=== PATIENT | female | born 2000 | race African-American/Black ===

== ENCOUNTER 2023-12-08 23:09 | Emergency (ER) | payer BC ==
[~2023-12-08] VITALS: Ht 165.1 cm; Wt 128.3 kg
[2023-12-09] MEDS: KETOROLAC 30 MG/ML 1ML VIAL IV ONE (00:16)
[2023-12-09 00:19] LABS: HEMATOCRIT 32.5 % (36.0-47.0); HEMOGLOBIN 9.2 g/dl (12.0-15.5); MEAN CORPUSCULAR HGB CONC 28.3 g/dl (32.0-36.5); MEAN CORPUSCULAR VOLUME 67.1 fl (80.0-96.0); PLATELET COUNT, AUTOMATED 498 10^3/uL (150-450); RED BLOOD COUNT 4.84 10^6/uL (4.00-5.40); WHITE BLOOD COUNT 7.9 10^3/uL (4.0-10.0)
[2023-12-09 00:20] LABS: BASO % 0.3 % (0.0-1.0); EOS # 0.2 10^3/uL (0.0-0.5); EOS % 3.1 % (0.0-3.0); LYMPH % 37.9 % (24.0-44.0); MONO # 0.5 10^3/uL (0.0-0.8); MONO % 6.5 % (2.0-8.0); NEUTROPHILS # 4.1 10^3/uL (1.5-8.5); NEUTROPHILS % 51.9 % (36.0-66.0)
[2023-12-09 00:23] LABS: INR 1.2; PARTIAL THROMBOPLASTIN TIME 32.1 SECONDS (24.8-34.2); PROTHROMBIN TIME 14.8 SECONDS (12.5-14.5)
[2023-12-09 00:41] LABS: LIPASE 28 U/L (12-53)
[2023-12-09 00:42] LABS: RSV AMPLIFICATION NEGATIVE (NEGATIVE)
[2023-12-09 00:44] LABS: ALBUMIN 3.6 G/DL (3.2-5.2); ALKALINE PHOSPHATASE 88 U/L (46-116); ALT/SGPT 19 U/L (7.0-40); AST/SGOT 19 U/L (<34); BILIRUBIN,DIRECT < 0.1 MG/DL (<0.4); BILIRUBIN,TOTAL 0.2 MG/DL (0.3-1.2); BLOOD UREA NITROGEN 8 MG/DL (9-23); CALCIUM LEVEL 9.3 MG/DL (8.5-10.1); CARBON DIOXIDE LEVEL 27 MMOL/L (20-31); CHLORIDE LEVEL 104 MMOL/L (98-107); CK-MB VALUE MASS < 1.0 NG/ML (<3.6); CREATININE FOR GFR 0.65 MG/DL (0.55-1.30); GLOMERULAR FILTRATION RATE > 60.0 (>60); GLUCOSE, FASTING 95 MG/DL (60-100); POTASSIUM SERUM 4.3 MMOL/L (3.5-5.1); SODIUM LEVEL 138 MMOL/L (136-145); TOTAL PROTEIN 7.9 G/DL (5.7-8.2)
[2023-12-09 00:47] LABS: THYROID STIMULATING HORMONE 4.835 uIU/ML (0.55-4.78)
[2023-12-09 00:50] LABS: CPK CREATINE PHOSPHOKINASE 113 U/L (34-145); MB/CK RELATIVE INDEX 0.88 (< OR =4)
[2023-12-09 01:09] VITALS: BP 134/72; TEMP 98.1; O2SAT 100
== END 2023-12-09 01:10 | disposition home or self-care (01) ==
LOC: M ED 23:09
DX: J02.9 Acute pharyngitis, unspecified (principal); R07.89 Other chest pain; J35.8 Other chronic diseases of tonsils and adenoids; R94.6 Abnormal results of thyroid function studies; D50.9 Iron deficiency anemia, unspecified; Z88.0 Allergy status to penicillin
CPT/HCPCS: 71046; 80048; 80076; 82550; 82553; 83690; 83880; 84439; 84443; 84484; 84702; 85025; 85610; 85730; 87631; 93005; 96374; 99284; J1885

== ENCOUNTER 2024-03-04 10:38 | Emergency (ER) | payer BC ==
[~2024-03-04] VITALS: Ht 165.1 cm; Wt 129.5 kg
[2024-03-04 10:38] VITALS: BP 156/73; TEMP 98.6; O2SAT 100
[2024-03-04] MEDS ORDERED: FERR325T3 PO (10:52)
[2024-03-04] MEDS: diazePAM 5MG TABLET PO ONE (14:40)
[2024-03-04] MEDS: IBUPROFEN 600MG TAB PO ONE (14:40)
[2024-03-04] MEDS ORDERED: IBUP-1022 PO (15:38)
[2024-03-04] MEDS ORDERED: SOMA350T PO (15:38)
== END 2024-03-04 15:50 | disposition home or self-care (01) ==
LOC: M ED 10:38
DX: R07.89 Other chest pain (principal); E28.2 Polycystic ovarian syndrome; D64.9 Anemia, unspecified; Z88.0 Allergy status to penicillin; Z79.1 Long term (current) use of non-steroidal anti-inflammatories (NSAID); Z79.899 Other long term (current) drug therapy

== ENCOUNTER → 2024-03-20 | Outpatient (REF) ==
[~2024-03-20] MED LIST: FERR325T3 PO; IBUP-1022 PO; SOMA350T PO
== END ==
LOC: M EMP 15:07
PROVIDERS: ATTEND Family Medicine
DX: Z11.52 Encounter for screening for COVID-19 (principal)

== ENCOUNTER → 2024-04-23 | Outpatient (REF) | payer BC | LOC: M SFHCPLAZ 18:00 | PROVIDERS: ATTEND Student in an Organized Health Care Education/Training Program | DX: Z87.42 Personal history of other diseases of the female genital tract (principal); Z76.89 Persons encountering health services in other specified circumstances; F41.9 Anxiety disorder, unspecified ==

== ENCOUNTER → 2024-05-29 | Outpatient (CLI) | payer BC ==
[2024-05-29 14:30] LABS: BASO % 0.4 % (0.0-1.0); EOS # 0.2 10^3/uL (0.0-0.5); HEMATOCRIT 34.7 % (36.0-47.0); HEMOGLOBIN 9.7 g/dl (12.0-15.5); MONO # 0.5 10^3/uL (0.0-0.8); MONO % 6.4 % (2.0-8.0); NEUTROPHILS # 4.4 10^3/uL (1.5-8.5); NEUTROPHILS % 61.8 % (36.0-66.0); PLATELET COUNT, AUTOMATED 546 10^3/uL (150-450)
[2024-05-29 14:56] LABS: ALBUMIN 3.4 G/DL (3.2-5.2); ALKALINE PHOSPHATASE 96 U/L (46-116); ALT/SGPT 16 U/L (7.0-40); AST/SGOT 11 U/L (<34); BILIRUBIN,TOTAL 0.3 MG/DL (0.3-1.2); BLOOD UREA NITROGEN 9 MG/DL (9-23); CALCIUM LEVEL 9.4 MG/DL (8.5-10.1); CARBON DIOXIDE LEVEL 30 MMOL/L (20-31); CHLORIDE LEVEL 108 MMOL/L (98-107); CREATININE FOR GFR 0.74 MG/DL (0.55-1.30); GLOMERULAR FILTRATION RATE > 60.0 (>60); GLUCOSE, FASTING 97 MG/DL (60-100); POTASSIUM SERUM 4.2 MMOL/L (3.5-5.1); SODIUM LEVEL 140 MMOL/L (136-145); TOTAL PROTEIN 7.7 G/DL (5.7-8.2)
[2024-05-29 14:57] LABS: FREE T4 1.15 NG/DL (0.89-1.76)
[2024-05-29 14:58] LABS: PROLACTIN 6.26 NG/ML; THYROID STIMULATING HORMONE 2.446 uIU/ML (0.55-4.78)
[2024-05-29 15:02] LABS: HEMOGLOBIN A1c 5.8 % (4.0-6.0)
[2024-05-30 09:37] LABS: DEHYDROEPIANDROSTERONE SULFATE 216 mcg/dL (14-349)
== END ==
LOC: M PLALAB 10:39
PROVIDERS: ATTEND Student in an Organized Health Care Education/Training Program
DX: Z87.42 Personal history of other diseases of the female genital tract (principal); Z76.89 Persons encountering health services in other specified circumstances; F41.9 Anxiety disorder, unspecified

== ENCOUNTER → 2024-07-15 | Outpatient (REF) | LOC: M EMP 10:48 | PROVIDERS: ATTEND Family Medicine | DX: Z11.52 Encounter for screening for COVID-19 (principal) ==

== ENCOUNTER → 2024-07-15 | Outpatient (REF) | LOC: M EMP 10:46 | PROVIDERS: ATTEND Family Medicine | DX: Z11.52 Encounter for screening for COVID-19 (principal) ==

== ENCOUNTER → 2024-12-05 | Outpatient (REF) | payer BC | LOC: M SFHCPLAZ 11:50 | PROVIDERS: ATTEND Student in an Organized Health Care Education/Training Program | DX: Z53.9 Procedure and treatment not carried out, unspecified reason (principal) ==

== ENCOUNTER → 2024-12-16 | Outpatient (REF) | LOC: M EMP 10:33 | PROVIDERS: ATTEND Family Medicine | DX: Z11.52 Encounter for screening for COVID-19 (principal) ==

== ENCOUNTER → 2025-05-20 | Outpatient (REF) | payer BC ==
[~2025-05-20] MED LIST changes: -IBUP-1022 PO; +IBUP600T42 PO
[2025-05-20 14:03] LABS: APPEARANCE, URINE CLEAR (CLEAR); BACTERIA, URINE AUTO NEGATIVE (NEGATIVE); BILIRUBIN, URINE AUTO NEGATIVE (NEGATIVE); BLOOD, URINE BLOOD 2+ (NEGATIVE); GLUCOSE, URINE (UA) AUTO NEGATIVE (NEGATIVE); KETONE, URINE AUTO NEGATIVE (NEGATIVE); LEUKOCYTE ESTERASE, URINE AUTO NEGATIVE (NEGATIVE); MUCUS, URINE SMALL (NEGATIVE); NITRITE, URINE AUTO NEGATIVE (NEGATIVE); PROTEIN, URINE AUTO NEGATIVE (NEGATIVE); RBC, URINE AUTO TNTC /HPF (0-3); SPECIFIC GRAVITY URINE AUTO 1.015 (1.002-1.035); SQUAMOUS EPITHELIAL CELL UR AU 0 /HPF (0-6); UROBILINOGEN, URINE AUTO 0.2 mg/dL (0.0-2.0); WBC, URINE AUTO 0 /HPF (0-3)
== END ==
LOC: M SFHCPLAZ 13:18
PROVIDERS: ATTEND Student in an Organized Health Care Education/Training Program
DX: R10.32 Left lower quadrant pain (principal)

== ENCOUNTER → 2025-06-10 | Outpatient (CLI) | payer BC | LOC: M RAD 14:27 | PROVIDERS: ATTEND Student in an Organized Health Care Education/Training Program | DX: N93.8 Other specified abnormal uterine and vaginal bleeding (principal) ==

== ENCOUNTER → 2025-06-26 | Outpatient (CLI) | payer BC ==
[2025-06-26 17:37] LABS: CHOLESTEROL LEVEL 143.0 MG/DL (<200); CHOLESTEROL RISK RATIO 2.99 (<5); IRON (FE) 11.0 UG/DL (50-170); LDL CHOLESTEROL 79.7 MG/DL (<100); NON-HDL-C 95.3 MG/DL; TRIGLYCERIDES LEVEL 78.0 MG/DL (<150)
[2025-06-26 17:53] LABS: BASO # 0.0 10^3/uL (0.0-0.2); BASO % 0.1 % (0.0-1.0); EOS # 0.2 10^3/uL (0.0-0.5); EOS % 2.7 % (0.0-3.0); LYMPH # 2.5 10^3/uL (1.5-5.0); LYMPH % 34.6 % (24.0-44.0); MONO # 0.5 10^3/uL (0.0-0.8); MONO % 7.3 % (2.0-8.0); NEUTROPHILS # 3.9 10^3/uL (1.5-8.5); NEUTROPHILS % 55.0 % (36.0-66.0); PLATELET COUNT, AUTOMATED 692 10^3/uL (150-450)
[2025-06-26 19:19] LABS: ESTIMATED AVERAGE GLUCOSE 111.0 MG/DL (60-110)
== END ==
LOC: M PLALAB 15:19
PROVIDERS: ATTEND Student in an Organized Health Care Education/Training Program
DX: Z00.00 Encounter for general adult medical examination without abnormal findings (principal); N93.8 Other specified abnormal uterine and vaginal bleeding

== ENCOUNTER → 2025-07-28 | Outpatient (CLI) | payer BC | LOC: M RAD 07:49 | PROVIDERS: ATTEND Student in an Organized Health Care Education/Training Program | DX: K21.9 Gastro-esophageal reflux disease without esophagitis (principal) ==